=== PATIENT | female | born 1945 | race Hispanic/Latino ===

== ENCOUNTER 2022-04-24 18:09 | Inpatient (IN) | payer OTHER ==
[2022-04-24] MEDS ORDERED: FAMOTIDINE 20 MG/2 ML VIAL IV ONE (20:43)
[2022-04-24] MEDS ORDERED: ONDANSETRON 4 MG/2 ML VIAL ONE (20:43)
[2022-04-24 21:23] LABS: Absolute Lymphocytes (CBC) 1.7 K/uL (0.7-4.9); Hematocrit 39.2 % (36.0-45.0); MCV 85.8 fL (80-100); MPV 7.6 fL (7.6-11.3); RBC Red Blood Cell Count 4.56 M/uL (3.86-4.86)
[2022-04-24 21:23] LABS: Urine Blood Trace-lysed (Negative); Urine Glucose Negative (Negative); Urine Protein Negative (Negative); Urine pH 6.5 (5.0-7.0)
--- NOTE | 2022-04-24 22:08 | RAD REPORT ---
EXAM DESCRIPTION: Nelida Single View04/24/2022 9:59 pm CLINICAL HISTORY: Abdominal pain COMPARISON: 2016 FINDINGS: The lungs appear clear of acute infiltrate. The heart is normal size IMPRESSION: No acute abnormalities displayed
[2022-04-24] MEDS ORDERED: NA CHLORIDE 0.9% 100 ML ONE (22:14)
[2022-04-24] MEDS ORDERED: MORPHINE 2 MG/ML SYR ONE (22:14)
[2022-04-24] MEDS ORDERED: PIPERACIL/TAZO 3.375 GM VIAL IV ONE (22:15)
[2022-04-24 22:36] LABS: Albumin 3.8 g/dL (3.4-5.0); Bilirubin Total 0.4 mg/dL (0.2-1.0); Potassium 3.7 mmol/L (3.5-5.1)
--- NOTE | 2022-04-25 00:01 | ER ---
Nurse's Notes [facility] Name: Clotilde De La Cruz Age: 76 yrs Sex: Female : 1945 Arrival Date: 04/24/2022 Time: 18:13 Bed 14 Private MD: Diagnosis: Epigastric abdominal tenderness;Biliary acute pancreatitis Presentation: 04/24 19:51 Chief complaint: Patient states: Pt c/o lower back pain and right sided abdominal pain. ld1 Nausea. X 1 day. Coronavirus screen: At this time, the client does not indicate any symptoms associated with coronavirus-19. Ebola Screen: No symptoms or risks identified at this time. Initial Sepsis Screen: Does the patient meet any 2 criteria? No. Patient's initial sepsis screen is negative. Does the patient have a suspected source of infection? No. Patient's initial sepsis screen is negative. Risk Assessment: Do you want to hurt yourself or someone else? Patient reports no desire to harm self or others. Onset of symptoms was April 24, 2022. 19:51 Method Of Arrival: Ambulatory ld1 19:51 Acuity: JOSE 3 ld1 Triage Assessment: 19:54 General: Appears in no apparent distress. comfortable, Behavior is calm, cooperative, ld1 appropriate for age. Pain: Complains of pain in right upper quadrant and right lower quadrant Pain does not radiate. Pain currently is 4 out of 10 on a pain scale. Quality of pain is described as throbbing, Pain began 1 day ago. Is continuous. EENT: No signs and/or symptoms were reported regarding the EENT system. Neuro: Level of Consciousness is awake, alert, obeys commands, Oriented to person, place, time, situation. Cardiovascular: Capillary refill < 3 seconds Patient's skin is warm and dry. Respiratory: Airway is patent Respiratory effort is even, unlabored. GI: Abdomen is round non-distended. : No signs and/or symptoms were reported regarding the genitourinary system. Derm: No signs and/or symptoms reported regarding the dermatologic system. Musculoskeletal: No signs and/or symptoms reported regarding the musculoskeletal system. Historical: - Allergies: 19:54 No Known Allergies; ld1 - PMHx: 19:54 GERD; Diabetes mellitus; Hypertensive disorder; Hypercholesterolemia; ld1 - PSHx: 19:54 None; ld1 - Immunization history:: Adult Immunizations up to date, Client reports receiving the 2nd dose of the Covid vaccine. - Social history:: Smoking status: Patient denies any tobacco usage or history of. Patient/guardian denies using alcohol. Screenin:40 Abuse screen: Denies threats or abuse. Nutritional screening: No deficits noted. [facility] Tuberculosis screening: No symptoms or risk factors identified. Fall Risk None identified. Assessment: 23:40 Reassessment: No changes from previously documented assessment. [facility] 04/25 10:55 GI: Bowel sounds present X 4 quads. Abd is soft X 4 quads Abdomen is tender to jg9 palpation in right upper quadrant and right lower quadrant. Vital Signs: 04/24 19:51 BP 155 / 64; Pulse 80; Resp 18; Temp 97.8(TE); Pulse Ox 100% on R/A; Weight 68.04 kg; ld1 Height 5 ft. 4 in. (162.56 cm); Pain 4/10; 19:51 Body Mass Index 25.75 (68.04 kg, 162.56 cm) 1 ED Course: 18:13 Patient arrived in ED. rg4 18:24 Yobany Landry DO is Attending Physician. ms3 19:23 Attending Physician role handed off by Yobany Landry DO ms3 19:23 Daniel Hill MD is Attending Physician. ms3 19:54 Triage completed. ld1 19:54 Arm band placed on right wrist. ld1 20:25 Terrie Sexton is Primary Nurse. tw5 21:09 Inserted saline lock: 22 gauge in right antecubital area, using aseptic technique. ke1 22:01 Chest Single View XRAY In Process Unspecified. EDMS 22:31 US Abdomen Limited In Process Unspecified. EDMS 23:09 CT Abd/Pelvis - IV Contrast Only In Process Unspecified. EDMS 23:40 No apparent distress. Awaiting lab results, Awaiting radiology results. 1 23:40 Patient has correct armband on for positive identification. Bed in low position. Call [facility] light in reach. Side rails up X 1. 23:40 No provider procedures requiring assistance completed. 1 23:57 Cali Stanley MD is Hospitalizing Provider. [facility] 04/25 00:05 Maicol Gilliland MD is Hospitalizing Provider. la1 01:09 COVID-19 SARS RT PCR (Document "Date of Onset" if Symptomatic) Sent. ke1 10:33 Primary Nurse role handed off by Terrie Sexton jg9 10:33 Magda Alvarado, MARTHA is Primary Nurse. jg9 10:56 Patient admitted, IV remains in place. jg9 Administered Medications: 04/24 21:10 Drug: Pepcid (famotidine) 20 mg Route: IVP; Site: right antecubital; ke1 23:48 Follow up: Response: No adverse reaction [facility] 21:10 Drug: Zofran (Ondansetron) 4 mg Route: IVP; Site: right antecubital; ke1 21:30 Follow up: Response: Marked relief of symptoms tw5 23:48 Follow up: Response: No adverse reaction [facility] 22:15 Drug: Zosyn (piperacillin-tazobactam) 3.375 grams Route: IVPB; Infused Over: 60 mins; ke1 Site: right antecubital; 23:15 Follow up: Response: No adverse reaction tw5 23:48 Follow up: IV Intake: 100ml [facility] 23:48 Follow up: IV Status: Completed infusion [facility] 22:15 Drug: morphine 2 mg Route: IVP; Infused Over: 4 mins; Site: right antecubital; ke1 23:48 Follow up: Response: No adverse reaction [facility] 04/25 01:02 Drug: NS 0.9% 1000 ml Route: IV; Rate: 1 bolus; Site: right antecubital; ke1 02:00 Follow up: IV Status: Completed infusion 5 Medication: 04/24 23:40 VIS not applicable for this client. [facility] Intake: 23:48 IV: 100ml; Total: 100ml. [facility] Outcome: 04/25 00:00 Decision to Hospitalize by Provider. donna 10:55 Admitted to Med/surg accompanied by nurse, via wheelchair, room 205, with chart, Report jg9 called to MARTHA Hand 10:55 Condition: stable 10:57 Patient left the ED. jg9 Signatures: Dispatcher [employer] EDMS Daniel Hill MD MD cha Attema, Lee, WOOD DIE MAKER-C WOOD DIE MAKER-Cla1 Chacha Ribera rg4 Yobany Landry DO DO ms3 Huyen Urrutia, RN RN ld1 Terrie Sexton tw5 Magda Alvarado, RN RN jg9 Jun Martin, RN RN ke1 Isatu Huertas, RN RN bh1
--- NOTE | 2022-04-25 00:01 | EDPHYS ---
Physician Documentation [facility] [place], [place] Name: Clotilde De La Cruz Age: 76 yrs Sex: Female : 1945 Arrival Date: 04/24/2022 Time: 18:13 Bed 14 Private MD: ED Physician Daniel Hill HPI: 04/24 18:50 This 76 yrs old Female presents to ER via Unassigned with complaints of ms3 Abdominal Pain, Back Pain. 19:19 This 76 yrs old Female presents to ER via Unassigned with complaints of ms3 Abdominal Pain, Back Pain. 19:19 The patient presents with abdominal pain right lower quadrant. Onset: The ms3 symptoms/episode began/occurred acutely, yesterday. The symptoms do not radiate. Associated signs and symptoms: none. The symptoms are described as burning, crampy. Modifying factors: The symptoms are alleviated by nothing, the symptoms are aggravated by nothing. Severity of pain: At its worst the pain was moderate in the emergency department the pain is unchanged is a 4 / 10. Historical: - Allergies: 19:54 No Known Allergies; ld1 - PMHx: 19:54 GERD; Diabetes mellitus; Hypertensive disorder; Hypercholesterolemia; ld1 - PSHx: 19:54 None; ld1 - Immunization history:: Adult Immunizations up to date, Client reports receiving the 2nd dose of the Covid vaccine. - Social history:: Smoking status: Patient denies any tobacco usage or history of. Patient/guardian denies using alcohol. ROS: 19:19 Constitutional: Negative for fever, and chills. Neck: Negative for injury, pain, and ms3 swelling, Cardiovascular: Negative for chest pain, and palpitations. Respiratory: Negative for shortness of breath, cough, wheezing, and pleuritic chest pain. 19:19 Skin: Negative for injury, rash, and discoloration. 19:19 Abdomen/GI: Positive for nausea, vomiting. 19:19 All other systems are negative. Exam: 19:19 Constitutional: This is a well developed, well nourished patient who is awake, alert, ms3 and in no acute distress. Head/Face: Normocephalic, atraumatic. Neck: Trachea midline, no cervical lymphadenopathy. Supple, full range of motion without nuchal rigidity, or vertebral point tenderness. No Meningismus. Chest/axilla: Normal chest wall appearance and motion. Nontender with no deformity. Cardiovascular: Regular rate and rhythm with a normal S1 and S2. No gallops, murmurs, or rubs. Normal PMI, no JVD. No pulse deficits. Respiratory: Lungs have equal breath sounds bilaterally, clear to auscultation and percussion. No rales, rhonchi or wheezes noted. No increased work of breathing, no retractions or nasal flaring. Skin: Warm, dry with normal turgor. Normal color with no rashes, no lesions, and no evidence of cellulitis. MS/ Extremity: Pulses equal, no cyanosis. Neurovascular intact. Full, normal range of motion. Psych: Awake, alert, with orientation to person, place and time. Behavior, mood, and affect are within normal limits. 19:19 Abdomen/GI: Inspection: abdomen appears normal, Bowel sounds: normal, Palpation: moderate abdominal tenderness, in the right upper quadrant. 22:46 ECG was reviewed by the Attending Physician. [facility] Vital Signs: 19:51 BP 155 / 64; Pulse 80; Resp 18; Temp 97.8(TE); Pulse Ox 100% on R/A; Weight 68.04 kg; ld1 Height 5 ft. 4 in. (162.56 cm); Pain 4/10; 19:51 Body Mass Index 25.75 (68.04 kg, 162.56 cm) ld1 MDM: 19:19 Differential diagnosis: bowel obstruction, cholecystitis, Cholelithiasis, ms3 diverticulitis, gastritis, gastroesophageal reflux disease, non-specific abd pain, pancreatitis, Pyelonephritis, urinary tract infection. Transition of care: After a detail discussion of the patient's case, care is transferred to Daniel Hill MD. 20:35 Patient medically screened. [facility] 21:40 Data reviewed: vital signs, nurses notes, lab test result(s), EKG, radiologic studies, [facility] CT scan, plain films. 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 Test interpretation: by ED physician or midlevel provider: ECG, plain radiologic studies. Counseling: I had a detailed discussion with the patient and/or guardian regarding: the historical points, exam findings, and any diagnostic results supporting the discharge/admit diagnosis, lab results, radiology results. 04/24 18:50 Order name: CBC with Diff; Complete Time: 21:31 ms3 04/24 18:50 Order name: CMP; Complete Time: 22:45 ms3 04/24 18:50 Order name: Lipase; Complete Time: 22:45 ms3 04/24 18:50 Order name: Urine Microscopic Only ms3 04/24 21:24 Order name: Urine Dipstick-Ancillary; Complete Time: 21:31 EDMO 04/24 21:40 Order name: Troponin High Sensitivity [facility] 04/24 18:50 Order name: CT Abd/Pelvis - IV Contrast Only ms3 04/24 23:56 Order name: Lipid Profile [facility] 04/25 00:03 Order name: COVID-19 SARS RT PCR (Document "Date of Onset" if Symptomatic) tw5 04/25 04:49 Order name: CBC with Automated Diff EDMS 04/25 04:53 Order name: Comprehensive Metabolic Panel EDMO 04/25 04:53 Order name: Troponin High Sensitivity EDMO 04/25 04:53 Order name: Lipase EDMO 04/25 06:25 Order name: Glucose, Ancillary Testing EDMO 04/24 18:50 Order name: IV Saline Lock; Complete Time: 21:22 ms3 04/24 18:50 Order name: Labs collected and sent; Complete Time: 21:22 ms3 04/24 18:50 Order name: Urine Dipstick-Ancillary (obtain specimen); Complete Time: 21:22 ma3 04/24 21:40 Order name: US Abdomen Limited [facility] 04/24 21:40 Order name: EKG; Complete Time: 21:41 [facility] 04/24 21:40 Order name: EKG - Nurse/Tech; Complete Time: 22:33 [facility] 04/24 21:40 Order name: Chest Single View XRAY; Complete Time: 22:26 [facility] EC:46 Rate is 69 beats/min. Rhythm is regular. QRS [place] is Normal. [place] interval is normal. QRS donna interval is normal. QT interval is normal. No Q waves. T waves are Normal. No ST changes noted. Clinical impression: Normal ECG and No evidence of ischemia. Interpreted by me. Reviewed by me. Administered Medications: 21:10 Drug: Pepcid (famotidine) 20 mg Route: IVP; Site: right antecubital; ke1 23:48 Follow up: Response: No adverse reaction bh1 21:10 Drug: Zofran (Ondansetron) 4 mg Route: IVP; Site: right antecubital; ke1 21:30 Follow up: Response: Marked relief of symptoms tw5 23:48 Follow up: Response: No adverse reaction [facility] 22:15 Drug: Zosyn (piperacillin-tazobactam) 3.375 grams Route: IVPB; Infused Over: 60 mins; ke1 Site: right antecubital; 23:15 Follow up: Response: No adverse reaction tw5 23:48 Follow up: IV Intake: 100ml 1 23:48 Follow up: IV Status: Completed infusion [facility] 22:15 Drug: morphine 2 mg Route: IVP; Infused Over: 4 mins; Site: right antecubital; ke1 23:48 Follow up: Response: No adverse reaction [facility] 04/25 01:02 Drug: NS 0.9% 1000 ml Route: IV; Rate: 1 bolus; Site: right antecubital; ke1 02:00 Follow up: IV Status: Completed infusion tw5 Disposition Summary: 04/25/22 00:00 Hospitalization Ordered Hospitalization Status: Inpatient Admission donna Condition: Fair donna Problem: new donna Symptoms: have improved donna Bed/Room Type: Standard donna Provider: Maicol Gilliland(04/25/22 00:05) yvan Location: Telemetry/MedSurg (Inpatient)(04/25/22 09:37) [facility] Room Assignment: [facility](04/25/22 09:37) [facility] Diagnosis - Epigastric abdominal tenderness donna - Biliary acute pancreatitis donna Forms: - Medication Reconciliation Form donna - SBAR form donna Signatures: Dispatcher [employer] EDMS Daniel Hill MD MD cha Attema, Lee, WAREHOUSE ORDER FILLER-C WAREHOUSE ORDER FILLER-Cla1 Petty Ribera, RN RN cg Luke Cunningham RN RN ja1 Yobany Landry DO DO ms3 Huyen Urrutia RN RN [email or web address] Jun Martin RN RN lala1 Terrie Sexton tw5 Isatu Huertas RN 1 Corrections: (The following items were deleted from the chart) 00:02 00:00 Telemetry/MedSurg (Inpatient) donna cg 00:02 00:00 donna cg 00:02 00:02 cg cg 00:05 00:00 OmitogunNorrisde donna la1 09:37 00:02 BR ER HOLD cg ja1 09:37 00:02 ERHOLD- cg ja1
[2022-04-25] MEDS ORDERED: ASPIRIN 81 MG CHEWABLE TABLET ONE (00:33)
[2022-04-25] MEDS ORDERED: NA CHLORIDE 0.9% 1,000 ML ONE ×2 (01:04→05:49)
--- NOTE | 2022-04-25 01:15 | P.HP ---
Certification for Inpatient Patient admitted to: Observation With expected LOS: <2 Midnights Patient will require the following post-hospital care: None Practitioner: I am a practitioner with admitting privileges, knowledge of patient current condition, hospital course, and medical plan of care. Services: Services provided to patient in accordance with Admission requirements found in Title 42 Section 412.3 of the Code of Federal Regulations <Rafael Olsen Keri Sales - Last Filed: 04/25/22 01:10> Patient History Date of Service: 04/25/22 History of Present Illness: 76-year-old Turkmen-speaking female with history of dur-lmalmmk-hfhgqvlwr diabetes, GERD, hypertension and hyperlipidemia presents to the emergency department for abdominal pain. She reports that her pain began yesterday, she describes the pain as dull, radiating to the back worse after eating and intermittent. Her pain is located primarily in the right side of the abdomen upper and lower quadrants. She was evaluated in the emergency department her labs were significant for mild leukocytosis, mild hyponatremia she had an ultrasound of her gallbladder which was unremarkable as well as a CT scan of the abdomen and pelvis the CT scan revealed abnormal increase peripancreatic haziness with increased size of the pancreatic head. Suggesting the possibility of minimal acute pancreatitiscorrelate with labs. Patient's lipase was within normal limits she is not a daily drinker, she does not have significant hypertriglyceridemia no history of pancreatitis in the past. She does take omeprazole daily for GERD/gastritis she has been doing this for many years she says she also reports that about 5 years ago she had an EGD which she reports was normal at that time. ED provider wishes to admit for further evaluation and management of abdominal pain and tenderness, possible pancreatitis/GERD/duodenitis - Past Medical/Surgical History -: Diabetes mellitus type 2 -: Hypertension -: Hyperlipidemia -: GERD -: None Psychosocial/ Personal History: Patient is retired, lives at home with her - Family History Family History: Reviewed- Non-Contributory - Social History Smoking Status: Never smoker Alcohol use: No CD- Drugs: No Caffeine use: Yes Place of Residence: Home <Rafael Olsen - Last Filed: 04/25/22 01:10> Date of Service: 04/25/22 <Maicol Gilliland - Last Filed: 04/25/22 10:17> Allergies No Known Allergies Allergy (Unverified 02/05/12 20:30) Home Medications: Cetirizine HCl 1 tab PO DAILY 04/25/22 Fluticasone Propionate [Armonair Digihaler] 2 spray SANTOS DAILY 04/25/22 Lovastatin 1 tab PO DAILY 04/25/22 Metformin ER [Glucophage ER*] 1 tab PO BID 04/25/22 Omeprazole 20 mg PO DAILY 04/25/22 Valsartan/Hydrochlorothiazide [Valsartan-Hctz 160-12.5 mg Tab] 1 tab PO DAILY 04/25/22 Review of Systems 10-point ROS is otherwise unremarkable Gastrointestinal: Nausea, Abdominal Pain <Rafael Olsen - Last Filed: 04/25/22 01:10> Physical Examination - Physical Exam General: Alert, In no apparent distress, Oriented x3 HEENT: Atraumatic, PERRLA, Mucous membr. moist/pink, EOMI, Sclerae nonicteric Neck: Supple, 2+ carotid pulse no bruit, No LAD, Without JVD or thyroid abnormality Respiratory: Clear to auscultation bilaterally, Normal air movement Cardiovascular: Regular rate/rhythm, Normal S1 S2 Capillary refill: <2 Seconds Gastrointestinal: Normal bowel sounds, Tenderness (Mild abdominal tenderness r ight upper and lower quadrants) Musculoskeletal: No tenderness Integumentary: No rashes Neurological: Normal speech, Normal strength at 5/5 x4 extr, Normal tone, Normal affect Lymphatics: No axilla or inguinal lymphadenopathy - Studies Laboratory Data (last 24 hrs) 04/24/22 21:14: Triglycerides 67, Cholesterol 165, HDL Cholesterol 65 H, Cholesterol/HDL Ratio 2.54 04/24/22 21:14: Sodium 132 L, Potassium 3.7, BUN 9, Creatinine 0.88, Glucose 112 H, Total Bilirubin 0.4, AST 13 L, ALT 26, Alkaline Phosphatase 70, Lipase 154 04/24/22 21:12: WBC 13.4 H, Hgb 13.3, Hct 39.2, Plt Count 235 <Rafael Olsen - Last Filed: 04/25/22 01:10> - Studies Laboratory Data (last 24 hrs) 04/24/22 21:14: Triglycerides 67, Cholesterol 165, HDL Cholesterol 65 H, Cholesterol/HDL Ratio 2.54 04/24/22 21:14: Sodium 132 L, Potassium 3.7, BUN 9, Creatinine 0.88, Glucose 112 H, Total Bilirubin 0.4, AST 13 L, ALT 26, Alkaline Phosphatase 70, Lipase 154 04/24/22 21:12: WBC 13.4 H, Hgb 13.3, Hct 39.2, Plt Count 235 <Maicol Gilliland - Last Filed: 04/25/22 10:17> Assessment and Plan - Plan Assessment: Abdominal tenderness/pain GERD Diabetes mellitus type [id number] Hypertension Hyperlipidemia Plan: Abdominal tenderness/pain: Initial lipase negative CT suggest possible early pancreatitis, will trend lipase level keep patient n.p.o. at this time provide as needed pain medications gallbladder negative for cholelithiasis or cholecystitis on both CT and ultrasound. GERD/duodenitis also possible to be contributing. Will provide patient with PPI as well. GERD: IV PPI, pt takes omeprazole at home. Diabetes mellitus type [id number]-[id number]-spbhlmape: Every 6 hours Accu-Chek, mild sliding scale insulin. patient takes metformin 500mg PO BID at home. Hypertension: Continue home medications when appropriate patient takes valsartan/hydrochlorothiazide 160/12.5 Hyperlipidemia: Continue lovastatin 20 mg daily when appropriate DVT PPX: Lovenox Code status: Full Discharge Plan: Home Plan to discharge in: 24 Hours - Advance Directives Does patient have a Living Will: No Does patient have a Durable POA for Healthcare: No - Code Status/Comfort Care Code Status Assessed: Yes (Full code) Critical Care: No Time Spent Managing Pts Care (In Minutes): 70 <Rafael Olsen - Last Filed: 04/25/22 01:10> Physician Review: Patient Assessed, Agree with Above Assessment and Plan Physician Review Additional Text: I have personally seen and evaluated Ms. Clotilde De La Cruz. I reviewed the notes and assessments performed by Rafael Olsen NP. I independently performed my own history and physical examination. I agree with the assessment and plan as outlined in his note. I concur with his documentation of Ms. De La Cruz. DIAGNOSES: # Acute Pancreatitis # Hypovolemic Hyponatremia, resolved # Type II Diabetes Mellitus # Hypertension # Hyperlipidemia # Gastroesophageal Reflux Disease Maicol Gilliland M.D. <Maicol Gilliland - Last Filed: 04/25/22 10:17>
[2022-04-25] MEDS ORDERED: SODIUM CHLORIDE 0.9% 10ML INJ IV PRN (03:36)
[2022-04-25] MEDS ORDERED: ONDANSETRON 4 MG/2 ML VIAL IV PRN (03:36)
[2022-04-25] MEDS ORDERED: NA CHLORIDE 0.9% 1,000 ML IV SCH (03:36)
[2022-04-25 04:42] LABS: Absolute Lymphocytes (CBC) 1.5 K/uL (0.7-4.9); Hematocrit 34.8 % (36.0-45.0); Lymphocytes % 13.4 % (15.3-44.8); MPV 7.8 fL (7.6-11.3)
[2022-04-25 04:53] LABS: Albumin 2.9 g/dL (3.4-5.0); Bilirubin Total 0.5 mg/dL (0.2-1.0); Potassium 3.8 mmol/L (3.5-5.1); Protein, Total 6.8 g/dL (6.4-8.2); Troponin High Sensitivity 5.6 pg/mL (<58.9)
[2022-04-25 04:59] VITALS: BMI 25.7
[2022-04-25] MEDS: Ringers Lactate 1,000 ML IV SCH ×4 (07:00→21:52)
[2022-04-25] MEDS: INSULIN -REGULAR HUMAN 50 UNIT/0.5 ML ML SQ SCH ×4 (07:30→21:00)
[2022-04-25] MEDS ORDERED: PANTOPRAZOLE 40 MG INJ ONE (08:16)
[2022-04-25] MEDS ORDERED: Ringers Lactate 1,000 ML IV ONE (08:17)
[2022-04-25] MEDS ORDERED: ENOXAPARIN 40 MG/0.4 ML SQ ONE (08:17)
[2022-04-25] MEDS: PANTOPRAZOLE 40 MG INJ IVP SCH ×2 (08:27→21:52)
[2022-04-25] MEDS: ENOXAPARIN 40 MG/0.4 ML SQ SCH (08:27)
[2022-04-25] MEDS: MORPHINE 2 MG/ML SYR IV PRN ×2 (09:29→20:37)
[2022-04-25] MEDS ORDERED: MORPHINE 2 MG/ML SYR ONE (09:33)
--- NOTE | 2022-04-25 10:51 | RAD REPORT ---
EXAM DESCRIPTION: Abdomen Exam Limited 04/24/2022 11:16 PM CDT CLINICAL HISTORY: 76 years, Female, ABD PAIN COMPARISON: None. TECHNIQUE: Utilizing a curved array transducer, real-time ultrasound evaluation of the abdominal vis cera was performed. Color Doppler imaging was used to assess vascular flow. FINDINGS: The liver demonstrate to be within normal limits. The gallbladder demonstrate to be within normal limits. No gallbladder stones were seen. No peric holecystic fluid and or wall thickening was identified. The common bile duct measures 2.4 mm. No intra or extrahepatic biliary duct dilatation was identified. The pancreas was not visualized. There is no evidence for free fluid within the upper abdomen. IMPRESSION: No sonographic evidence of cholelithiasis or cholecystitis. Electronically signed by: Josafat Hackett MD 04/24/2022 11:17 PM CDT Due to temporary technical issues with the PACS/Fluency reporting system, reports are being signed by the in house radiologists without review as a courtesy to insure prompt reporting. The interpreting radiologist is fully responsible for the content of the report.
[2022-04-25 11:12] VITALS: O2SAT 100
--- NOTE | 2022-04-25 15:41 | RAD REPORT ---
EXAM DESCRIPTION: Abdomen Pelvis W Contrast 04/24/2022 11:18 PM CDT CLINICAL HISTORY: 76 years, Female, RLQ abdominal pain COMPARISON: 07/28/2015 CLINICAL HISTORY: Contrast-enhanced images of the abdomen and pelvis were performed utilizing 5 mm s lice thickness at 5 mm interval reconstruction from the lung bases to the ischial tuberosities after the administration of IV contrast. In addition multiplanar reformats in the coronal and sagittal plane were obtained and reviewed. This exam was performed according to our departmental dose-optimization protocol, which includes auto mated exposure control, adjustment of the mA and/or kV according to patient size and/or use of iterat nahum reconstruction technique. FINDINGS: Some of the images are compromised by breathing motion artifact limiting diagnostic value. The lung bases demonstrate very minimal dependent atelectatic changes. Mild elevation of the right he midiaphragm. The liver demonstrate decreased attenuation corresponding to fatty infiltration. Otherwise the liver, gallbladder, spleen and adrenal glands demonstrate to be unremarkable, no focal lesions are noted. T here is no significant biliary duct dilatation. At the level of the pancreatic head there is abnormal increase peripancreatic haziness with increased size of the pancreatic head perhaps suggesting the p ossibility of minimal acute pancreatitis, best demonstrated on series #501 image 31/101-41/[address] series #402 image 44/115-50/115. The kidneys demonstrate normal uptake of contrast media. No evidence for nephrolithiasis and/or hydro nephrosis. There is a lower pole simple left renal cyst measuring 3.1 x [address] series #401 image 48/59. Grossly the unopacified stomach, small bowel and large bowel demonstrate to be within normal limits. There is no evidence for bowel dilatation and/or free air. The appendix is normal. The left site colon is decompressed with no gross abnormalities The urinary bladder demonstrate to be unremarkable. The uterus demonstrate to be within normal limi ts. There is no evidence for adnexal masses. The aorta demonstrate minimal atheromatous plaque form ation. There is no retroperitoneal lymphadenopathy. There is no evidence for ascites/or significant abnormal fluid collections. The rest of the soft tissue and bony structures are within normal limits . IMPRESSION: Abnormal increase peripancreatic haziness with increased size of the pancreatic head per haps suggesting the possibility of minimal acute pancreatitis. Correlate with lab values. Fatty infiltration of the liver. Left renal cyst. Electronically signed by: Josafat Hackett MD 04/24/2022 11:22 PM CDT Due to temporary technical issues with the PACS/Fluency reporting system, reports are being signed by the in house radiologists without review as a courtesy to insure prompt reporting. The interpreting radiologist is fully responsible for the content of the report.
[2022-04-25] MEDS ORDERED: ACETAMINOPHEN 325 MG TABLET PO PRN (15:52)
[2022-04-26] MEDS: Ringers Lactate 1,000 ML IV SCH ×4 (03:00→16:07)
[2022-04-26 04:18] LABS: Absolute Lymphocytes (CBC) 1.3 K/uL (0.7-4.9); Hematocrit 32.1 % (36.0-45.0); Lymphocytes % 21.4 % (15.3-44.8); MCV 87.1 fL (80-100); MPV 7.6 fL (7.6-11.3); RBC Red Blood Cell Count 3.68 M/uL (3.86-4.86)
[2022-04-26 04:37] LABS: Albumin 2.5 g/dL (3.4-5.0); Bilirubin Total 0.5 mg/dL (0.2-1.0); Potassium 3.6 mmol/L (3.5-5.1); Protein, Total 6.2 g/dL (6.4-8.2)
[2022-04-26] MEDS: INSULIN -REGULAR HUMAN 50 UNIT/0.5 ML ML SQ SCH ×4 (07:30→20:18)
[2022-04-26] MEDS ORDERED: KCL 20 MEQ/100 mL IVPB 20 MEQ/100 ML BAG IV SCH (08:00)
[2022-04-26] MEDS ORDERED: NA CHLORIDE 0.9% 0 ML ONE (08:21)
[2022-04-26] MEDS: ENOXAPARIN 40 MG/0.4 ML SQ SCH (08:23)
[2022-04-26] MEDS: PANTOPRAZOLE 40 MG INJ IVP SCH ×2 (08:24→20:17)
--- NOTE | 2022-04-26 14:32 | P.PN ---
Subjective Date of Service: 04/26/22 Chief Complaint: Acute Pancreatitis Ms. Clotilde De La Cruz is Faroese-speaking only. History was obtained with the assistance of a Faroese-Divehi field broomer. She reports that her pain is significantly better and has completely subsided. She feels hungry and is willing to try a diet. Discussed that we will advance her diet as tolerated, and she is in agreement this plan. Anticipate that she can be discharged tomorrow morning presuming that she tolerates a diet without any issues. Review of Systems General: Unremarkable Eyes: Unremarkable ENT: Unremarkable Respiratory: Unremarkable Cardiovascular: Unremarkable Gastrointestinal: Abdominal Pain (minimal) Genitourinary: Unremarkable Musculoskeletal: Unremarkable Integumentary: Unremarkable Neurological: Unremarkable Physical Examination - Vital Signs Temperature: 97.4 F Blood Pressure: 176/71 Pulse: 71 Respirations: 16 Pulse Ox (%): 93 - Physical Exam General: Alert, In no apparent distress, Oriented x3 HEENT: Atraumatic, Mucous membr. moist/pink, EOMI Neck: Supple, Without JVD or thyroid abnormality Respiratory: Clear to auscultation bilaterally, Normal air movement Cardiovascular: No edema, Regular rate/rhythm, Normal S1 S2, No gallops, No rubs, No murmurs Gastrointestinal: Normal bowel sounds, Soft and benign, No tenderness, No rebound, No guarding Musculoskeletal: No clubbing Integumentary: No rashes Neurological: Normal speech, Normal affect - Studies Medications List Reviewed: Yes Assessment And Plan - Plan # Acute Pancreatitis, suspect Medication-Induced Her calculated BISAP score is 1 (age > 60 years), which is suggestive of an increased mortality risk. In regards to the etiology of her pancreatitis, she does not have any evidence of cholelithiasis or hypertriglyceridemia. She denies any regular alcohol use. On medication review, valsartan has been shown to cause pancreatitis on occasion. - Started clear liquid diet - advance as tolerated - Lactated Ringers @ 100 mL/hour - Symptom management: - PRN acetaminophen, morphine, ondansetron - Lipase = 1083 - Lipid panel = TC 165, HDL 65, LDL 87, TG 67 - CT abdomen/pelvis: "abnormal increase peripancreatic haziness with increased size of the pancreatic head perhaps suggesting the possibility of minimal acute pancreatitis. Correlate with lab values." - Abdomen US: "no sonographic evidence of cholelithiasis or cholecystitis." - Hold valsartan # Type II Diabetes Mellitus # Hypertension # Hyperlipidemia # Gastroesophageal Reflux Disease - Home meds held given acute pancreatitis - resume as tolerated - Correction scale insulin ordered # Hepatic Steatosis # Left Renal Cyst - Follow-up with PCP # Hypovolemic Hyponatremia, resolved Maicol Gilliland MD Discharge Plan: Home Plan to discharge in: 24 Hours - Code Status/Comfort Care Code Status Assessed: Yes Code Status: Full Code Physician Review: Patient Assessed, Agree with Above Assessment and Plan Critical Care: No
[2022-04-27] MEDS: Ringers Lactate 1,000 ML IV SCH (01:00)
[2022-04-27 04:05] LABS: Potassium 3.7 mmol/L (3.5-5.1)
[2022-04-27] MEDS ORDERED: POTASSIUM CL SA 10 MEQ TAB PO ONE (06:09)
--- NOTE | 2022-04-27 06:32 | P.DS ---
Admission Date: 04/25/22 Discharge Date: 04/27/22 Disposition: ROUTINE DISCHARGE Discharge Condition: GOOD Reason for Admission: Acute Pancreatitis Hospital Course: DIAGNOSES: # Acute Pancreatitis, suspect Medication-Induced # Hypovolemic Hyponatremia, resolved # Type II Diabetes Mellitus # Hypertension # Hyperlipidemia # Gastroesophageal Reflux Disease # Hepatic Steatosis # Left Renal Cyst HOSPITAL COURSE: Ms. Clotilde De La Cruz is Dutch-speaking only. Discharge instructions were explained with the assistance of [employer] certified Dutch-[place] fashion designer, Ms. Loza, (ID [id number]). Ms. Clotilde De La Cruz is a pleasant 76 year old female with a past medical history significant for type 2 diabetes mellitus, hypertension, hyperlipidemia, and gastroesophageal reflux disease who was admitted to the [facility] on 04/25/2022 for abdominal pain. Upon further evaluation, she was found to have acute pancreatitis. She was treated with intravenous lactated Ringer's and her diet was advanced gradually as tolerated. Today, she felt significantly better and was able to tolerate a regular diet without any abdominal pain, nausea, or vomiting. In regards to the etiology of her pancreatitis, she does not have any evidence of cholelithiasis or hypertriglyceridemia. She denies any regular alcohol use. On medication review, valsartan has been shown to cause pancreatitis on occasion. It was recommended that she discontinue her valsartanhydrochlorothiazide, and she was provided a prescription for hydrochlorothiazide. She was advised to follow-up with her PCP for alternative anti-hypertensive regimens. On 04/27/2022, she was seen on morning rounds and deemed medically stable for discharge. She was discharged with instructions to schedule a follow-up appointment with her PCP in 3-5 days. She was provided a prescription for hydrochlorothiazide. She was given the opportunity to ask questions and reported no further questions. Furthermore, all questions were answered to the best of my ability. Today, I personally spent 20 minutes with her, of which greater than 50% of the time was spent in patient education, counseling, and coordination of care as described above. Vital Signs/Physical Exam: Temp Pulse Resp BP Pulse Ox 97.5 F 70 16 140/65 96 04/27/22 04:00 04/27/22 04:00 04/27/22 04:00 04/27/22 04:00 04/27/22 04:00 General: Alert, In no apparent distress, Oriented x3 HEENT: Atraumatic, Mucous membr. moist/pink, EOMI, Sclerae nonicteric Neck: Supple, JVD not distended Respiratory: Clear to auscultation bilaterally, Normal air movement Cardiovascular: Regular rate/rhythm, Normal S1 S2, No gallops, No rubs, No murmurs Gastrointestinal: Normal bowel sounds, Soft and benign, No tenderness, No rebound, No guarding Musculoskeletal: No clubbing, No tenderness Integumentary: No rashes Neurological: Normal speech, Normal tone, Normal affect Laboratory Data at Discharge: WBC 6.3 K/uL (4.3-10.9) D 04/26/22 03:59 Hgb 10.9 g/dL (12.0-15.0) L 04/26/22 03:59 Hct 32.1 % (36.0-45.0) L 04/26/22 03:59 Plt Count 197 K/uL (152-406) 04/26/22 03:59 Sodium 140 mmol/L (136-145) 04/27/22 03:10 Potassium 3.7 mmol/L (3.5-5.1) 04/27/22 03:10 BUN 6 mg/dL (7-18) L 04/27/22 03:10 Creatinine 0.68 mg/dL (0.55-1.3) 04/27/22 03:10 Glucose 100 mg/dL (74-106) 04/27/22 03:10 Total Bilirubin 0.5 mg/dL (0.2-1.0) 04/26/22 03:59 AST 9 U/L (15-37) L 04/26/22 03:59 ALT 16 U/L (12-78) 04/26/22 03:59 Alkaline Phosphatase 52 U/L (45-117) 04/26/22 03:59 Triglycerides 67 mg/dL (<150) 04/24/22 21:14 Cholesterol 165 mg/dL (<200) 04/24/22 21:14 HDL Cholesterol 65 mg/dL (40-60) H 04/24/22 21:14 Cholesterol/HDL Ratio 2.54 04/24/22 21:14 Lipase 115 U/L (73-393) 04/27/22 03:10 Home Medications: Cetirizine HCl 1 tab PO DAILY 04/25/22 Fluticasone Propionate [Armonair Digihaler] 2 spray SANTOS DAILY 04/25/22 Lovastatin 1 tab PO DAILY 04/25/22 Metformin ER [Glucophage ER*] 1 tab PO BID 04/25/22 Omeprazole 20 mg PO DAILY 04/25/22 hydroCHLOROthiazide [Hydrochlorothiazide*] 12.5 mg PO DAILY #30 cap 04/27/22 New Medications: hydroCHLOROthiazide [Hydrochlorothiazide*] 12.5 mg PO DAILY #30 cap Physician Discharge Instructions: PROBLEM: Pancreatitis GOAL: Clear understanding of disease process INSTRUCTIONS: Ok to discharge home Follow up with Primary Care Provider in 3-5 days Take new medication as prescribed Contact physician or return to ER for any complications or concerns Call [phone] for any questions regarding hospital stay Diet: Diabetic Activity: As tolerated E-script sent to [facility] in [place] Diet: ADA Activity: Ad cricket Followup: NONE,NONE [Primary Care Provider] - Time spent managing pt's care (in minutes): 20
[2022-04-27] MEDS: INSULIN -REGULAR HUMAN 50 UNIT/0.5 ML ML SQ SCH (07:24)
[2022-04-27 08:50] VITALS: BP 144/67; TEMP 97.7
--- NOTE | 2022-04-28 13:58 | EKG ---
Test Date: 2022-04-24 Test Time: 22:23:52 Air Conditioning Mechanic: ANDIE MEASUREMENT RESULTS: Intervals: Rate: 69 OH: 168 QRSD: 80 QT: 372 QTc: 398 [place]: P: 61 OH: 168 QRS: 84 T: 52 INTERPRETIVE STATEMENTS: Normal sinus rhythm Normal ECG Compared to ECG 09/12/2012 08:57:46 No significant changes Electronically Signed On 04-28-22 13:50:55 CDT by Mohan Jones
--- OUTSIDE RECORDS SUMMARY | 2022-05-07 17:22 | XMS REPORT | Continuity of Care Document ---
:1945 Author Organization [facility] t Address [address] [place] [address] Care Team Providers Name Role Phone TANK GARCÍA Primary Care Physician Unavailable Simone JOHNSTON Attending Clinician Unavailable Simone Johnston MD Attending Clinician Payers Payer Name Policy Type Policy Number Effective Date Expiration Date Sydnie kruse Ofuz [id number] 2021 00:00:00 SPRING Problems This patient has no known problems. Allergies, Adverse Reactions, Alerts Allergy Allergy Status Severity Reaction(s) Onset Inactive Treating Comm ents Source Name Type Date Date Clinician NO KNOWN Drug Active Univers ALLERGIE Class ity of [facility] Social History Social Habit Start Date Stop Date Quantity Comments Source Exposure to 2022-03-26 2022-04-05 Not sure [facility] SARS-CoV-2 (event) 00:00:00 08:54:00 Medica l Branch Sex Assigned At [birth year] [facility] 00:00:00 00:00:00 Medical Branch Smoking Status Start Date Stop Date Source Unknown if ever smoked [facility] Medications Ordered Filled Start Stop Current Ordering Indication Dosage Frequency Signature Comments Components Source Medication Medication Date Date Medication? Clinician (SIG) Name Name VALSARTAN-H Yes Take by Un susanna YDROCHLOROT 6-18 mouth. ity of HIAZIDE 09:34: [place] ORAL 46 Medical Branch LOVASTATIN Yes Take by Uni vers ORAL 6-18 mouth. ity of 09:34: [place] 46 [facility] Branch metformin Yes Take by Univ ers HCl 6-18 mouth. ity of (METFORMIN 09:34: [place] ORAL) 46 Medical Branch fluticasone Yes [id number] 2{spray Use 2 Univers propionate -18 } Sprays in ity of 50 00:00: each [place] mcg/actuati 00 nostril Medic al on nasal daily. Branch spray Cetirizine 2021- Yes [id number] 10mg Take 1 Univers 10 mg 04-05 capsule by ity of capsule 00:00: 04:59 mouth [place] 00 :00 daily for Medical 30 days. Branch Immunizations Ordered Filled Immunization Date Status Comments Sour e Immunization Name Name SARS-COV-2 COVID-19 2021-08-21 Completed Unive rsity of PFIZER VACCINE 00:00:00 [facility] SARS-COV-2 COVID-19 2021-03-04 Completed Unive rsity of PFIZER VACCINE 00:00:00 [facility] SARS-COV-2 COVID-19 2021-02-12 Completed Unive rsity of PFIZER VACCINE 00:00:00 [facility] Vital Signs Vital Name Observation Time Observation Value Comments Source Systolic blood 2022-04-05 13:55:00 159 mm[Hg] Univer sity of pressure [facility] Diastolic blood 2022-04-05 13:55:00 63 mm[Hg] Unive rsity of pressure [facility] Heart rate 2022-04-05 13:55:00 81 /min [facility] Body temperature 2022-04-05 13:55:00 36.67 Key Univ ersity of [facility] Respiratory rate 2022-04-05 13:55:00 22 /min Univ ersity of [facility] Body weight 2022-04-05 13:55:00 72.53 kg [facility] Oxygen saturation in 2022-04-05 13:55:00 97 /min [facility] Arterial blood by [facility] Pulse oximetry Branch Procedures Procedure Date / Time Performed Performing Clinician Sour e NOTICE OF PRIVACY 2022-04-05 13:51:39 Doctor Unassigned, No Univ [facility] [place] PRACTICES Name Medical Branch Encounters Start End Encounter Admission Attending Care Care Encounter Source Date/Time Date/Time Type Type Clinicians Facility Department ID 2022-04-05 2022-04-05 Emergency X PRESTON, [facility] ERT [id number] Univers 08:58:00 10:00:00 JESÚS servin [facility] 2022-04-05 2022-04-05 Emergency Preston, [facility] [id number] [facility] 08:58:00 10:00:00 Jesús RISO [id number] gareth campbell [place] [id number] [facility] [id number] [place] [address] Branch Results This patient has no known results.
== END 2022-04-27 08:30 | disposition home or self-care (01) | DRG 439 ==
LOC: ER 18:09 → ERHOLD 04-25 01:03 → 2ND 04-25 10:08 → OBSVTOIN 04-25 12:07
PROVIDERS: ADMIT Internal Medicine; ATTEND Internal Medicine
DX: K85.30 Drug induced acute pancreatitis without necrosis or infection (principal); E87.1 Hypo-osmolality and hyponatremia; T46.5X5A Adverse effect of other antihypertensive drugs, initial encounter; Y92.009 Unspecified place in unspecified non-institutional (private) residence as the place of occurrence of the external cause; E86.1 Hypovolemia; E11.9 Type 2 diabetes mellitus without complications; I10 Essential (primary) hypertension; E78.5 Hyperlipidemia, unspecified; K21.9 Gastro-esophageal reflux disease without esophagitis; K76.0 Fatty (change of) liver, not elsewhere classified; N28.1 Cyst of kidney, acquired; Z20.822 Contact with and (suspected) exposure to COVID-19
CPT/HCPCS: 36415; 71045; 74177; 76705; 80048; 80053; 80061; 81003; 82947; 83690; 84484; 85025; 93005; 96361; 96365; 96366; 96375; 99285; C9113; G0378; J1650; J2270; J2405; J2543; J3480; J3490; J7030; J7050; J7120; Q9967; U0003

== ENCOUNTER 2022-08-14 19:25 | Emergency (ER) | payer OTHER ==
[2022-08-14] MEDS ORDERED: FLEET ENEMA ADULT PR ONE (19:59)
[2022-08-14] MEDS ORDERED: NA CHLORIDE 0.9% 1,000 ML ONE (20:00)
--- OUTSIDE RECORDS SUMMARY | 2022-08-14 20:00 | XMS REPORT | Continuity of Care Document ---
:1945 Author Organization [facility] t Address [address] [place] [address] [address] [place] [address] Care Team Providers Name Role Phone JEANCARLOS GARCÍA Primary Care Physician Unavailable JESÚS JOHNSTON Attending Clinician Unavailable Jesús Johnston MD Attending Clinician Payers Payer Name Policy Type Policy Number Effective Date Expiration Date Sydnie kruse Pik[employer]chart [id number] 2021 00:00:00 SPRING Problems This patient has no known problems. Allergies, Adverse Reactions, Alerts Allergy Allergy Status Severity Reaction(s) Onset Inactive Treating Comm ents Source Name Type Date Date Clinician NO KNOWN Drug Active Univers ALLERGIE Class ity of [facility] Social History Social Habit Start Date Stop Date Quantity Comments Source Exposure to 2022-03-26 2022-04-05 Not sure [facility] SARS-CoV-2 (event) 00:00:00 08:54:00 Medica l Branch Sex Assigned At [birth year] [facility] 00:00:00 00:00:00 Medical Branch Smoking Status Start Date Stop Date Source Unknown if ever smoked [facility] Medications Ordered Filled Start Stop Current Ordering Indication Dosage Frequency Signature Comments Components Source Medication Medication Date Date Medication? Clinician (SIG) Name Name VALSARTAN-H Yes Take by Uni vers YDROCHLOROT 6-18 mouth. ity of HIAZIDE 09:34: [place] ORAL [address] [place] [address] LOVASTATIN Yes Take by Univ ers ORAL 6-18 mouth. ity of 09:34: [address] metformin Yes Take by Unive rs HCl 6-18 mouth. ity of (METFORMIN 09:34: [place] ORAL) 46 [facility] fluticasone Yes [id number] 2{spray Use 2 Univers propionate 6-18 } Sprays in ity of 50 00:00: each [place] mcg/actuati 00 nostril Medic al on nasal daily. Branch spray Cetirizine 2021- No [id number] 10mg Take 1 Univers 10 mg 04-05 capsule by ity of capsule 00:00: 04:59 mouth [place] 00 :00 daily for Medical 30 days. Branch Immunizations Ordered Filled Immunization Date Status Comments Sour e Immunization Name Name SARS-COV-2 COVID-19 2021-08-21 Completed Unive rsity of PFIZER VACCINE 00:00:00 [facility] SARS-COV-2 COVID-19 2021-03-04 Completed Unive rsity of PFIZER VACCINE 00:00:00 [facility] SARS-COV-2 COVID-19 2021-02-12 Completed Unive rsity of PFIZER VACCINE 00:00:00 [facility] Vital Signs Vital Name Observation Time Observation Value Comments Source Systolic blood 2022-04-05 13:55:00 159 mm[Hg] Univer sity of pressure [facility] Diastolic blood 2022-04-05 13:55:00 63 mm[Hg] Unive rsity of pressure [facility] Heart rate 2022-04-05 13:55:00 81 /min [facility] Body temperature 2022-04-05 13:55:00 36.67 Key [facility] Res[facility] rate 2022-04-05 13:55:00 22 /min [facility] Body weight 2022-04-05 13:55:00 72.53 kg [facility] Oxygen saturation in 2022-04-05 13:55:00 97 /min [facility] Arterial blood by [facility] Pulse oximetry [place] Procedures Procedure Date / Time Performed Performing Clinician Sour e NOTICE OF PRIVACY 2022-04-05 13:51:39 Doctor Unassigned, No Univ [facility] PRACTICES Name Medical Branch Encounters Start End Encounter Admission Attending Care Care Encounter Source Date/Time Date/Time Type Type Clinicians Facility Department ID 2022-04-05 2022-04-05 Emergency X PRESTON, [facility] ERT [id number] Univers 08:58:00 10:00:00 JESÚS servin [facility] 2022-04-05 2022-04-05 [facility] [id number] [facility] 08:58:00 10:00:00 Jesús RIOS [id number] gareth [facility] [id number] [facility] [id number] [facility] 084 Branch Results This patient has no known results.
[2022-08-14 20:29] LABS: Urine Blood Negative (Negative); Urine Glucose Negative (Negative); Urine Protein Negative (Negative); Urine Specific Gravity 1.025 (1.005-1.030)
[2022-08-14 20:48] LABS: Absolute Lymphocytes (CBC) 2.5 K/uL (0.7-4.9); Hematocrit 38.9 % (36.0-45.0); Lymphocytes % 31.6 % (15.3-44.8); MCV 85.7 fL (80-100); MPV 7.8 fL (7.6-11.3); RBC Red Blood Cell Count 4.54 M/uL (3.86-4.86)
[2022-08-14 21:04] LABS: Albumin 3.6 g/dL (3.4-5.0); Bilirubin Total 0.2 mg/dL (0.2-1.0); Potassium 3.9 mmol/L (3.5-5.1); Protein, Total 7.6 g/dL (6.4-8.2)
--- NOTE | 2022-08-14 21:10 | RAD REPORT ---
EXAM DESCRIPTION: CTAbdomen Pelvis W Contrast - 08/14/2022 9:00 pm CLINICAL HISTORY: Abdominal pain. constipation, unable to have bowel movement COMPARISON: Abdomen Pelvis W Contrast dated 04/24/2022; CT ABD PELVIS W CONTRAST dated 07/25/2015 TECHNIQUE: Biphasic CT imaging of the abdomen and pelvis was performed with 100 ml non-ionic IV cont rast. All CT scans are performed using dose optimization technique as appropriate and may include automated exposure control or mA/KV adjustment according to patient size. FINDINGS: The lung bases are clear. The liver, spleen, pancreas, adrenal glands and kidneys are within normal limits. 33 mm cyst inferior right kidney. No bowel obstruction, free air, free fluid or abscess. Moderate stool is present throughout the colon . The appendix is normal. No evidence of significant lymphadenopathy. No suspicious bony findings. IMPRESSION: No acute intra-abdominal or pelvic finding. Moderate constipation.
--- NOTE | 2022-08-14 21:26 | EDPHYS ---
Physician Documentation [facility] Name: Clotilde De La Cruz Age: 76 yrs Sex: Female : 1945 Arrival Date: 08/14/2022 Time: 19:28 Bed 7 Private MD: ED Physician Donny Malave HPI: 08/14 19:50 This 76 yrs old Female presents to ER via Ambulatory with complaints of rn constipation. 19:50 The patient presents to the emergency department with constipation. Onset: The rn symptoms/episode began/occurred today. Possible causes: unknown. The symptoms are aggravated by nothing. The symptoms are alleviated by nothing. Associated signs and symptoms: Pertinent positives: constipation, Pertinent negatives: abdominal pain, fever, GI bleeding. Severity of symptoms: At their worst the symptoms were moderate in the emergency department the symptoms are unchanged. The patient has experienced a previous episode. The patient has not recently seen a physician. Pt reports constipation, last BM yesterday, denies abd pain/vomiting/diarrhea. NO fever. Has happened once before. Drank juice prior to coming in, but no other medication. Passing gas. Historical: - Allergies: 19:46 No Known Allergies; lg3 - Home Meds: 19:46 Lovastatin Oral 20 mg daily [Active]; Metformin Oral 500 mg twice a day [Active]; hctz lg3 12.5 mg every morning [Active]; Omeprazole Oral 20 mg daily [Active]; - PMHx: 19:46 diabetes mellitus; GERD; Hypercholesterolemia; Hypertensive disorder; lg3 - PSHx: 19:46 None; lg3 - Immunization history:: Adult Immunizations up to date, Client reports receiving the 2nd dose of the Covid vaccine. - Social history:: Smoking status: Patient denies any tobacco usage or history of. Patient/guardian denies using alcohol. - Family history:: not pertinent. - Hospitalizations: : No recent hospitalization is reported. ROS: 19:50 Constitutional: Negative for fever, chills, and weight loss, Eyes: Negative for injury, rn pain, redness, and discharge, Cardiovascular: Negative for chest pain, palpitations, and edema, Respiratory: Negative for shortness of breath, cough, wheezing, and pleuritic chest pain, Abdomen/GI: Negative for abd pain. + constipation MS/Extremity: Negative for injury and deformity, Skin: Negative for injury, rash, and discoloration, Neuro: Negative for headache, weakness, numbness, tingling, and seizure. Exam: 19:55 Constitutional: This is a well developed, well nourished patient who is awake, alert, rn and in no acute distress. Ambulatory to room without difficulty. Head/Face: Normocephalic, atraumatic. ENT: MMM Cardiovascular: Regular rate and rhythm. No pulse deficits. Respiratory: No increased work of breathing, no retractions or nasal flaring. Abdomen/GI: soft, non-tender, non-distended Skin: Warm, dry MS/ Extremity: Pulses equal, no cyanosis. Neuro: Awake and alert, GCS 15 Vital Signs: 19:44 BP 167 / 74; Pulse 76; Resp 16 S; Temp 97.6(O); Pulse Ox 98% on R/A; Weight 81.65 kg lg3 (R); Height 5 ft. 2 in. (157.48 cm) (R); Pain 0/10; 21:29 BP 147 / 74; Pulse 75; Resp 18 S; Pulse Ox 98% on R/A; as6 19:44 Body Mass Index 32.92 (81.65 kg, 157.48 cm) lg3 MDM: 19:28 Patient medically screened. rn 21:23 ED course: Pt had bowel movement, feels better, reports slight abd cramping. . rn 21:24 Differential diagnosis: constipation, bowel obstruction, dehydration. Data reviewed: rn vital signs, nurses notes, lab test result(s), radiologic studies, CT scan, and as a result, I will discharge patient. Counseling: I had a detailed discussion with the patient and/or guardian regarding: the historical points, exam findings, and any diagnostic results supporting the discharge/admit diagnosis, lab results, radiology results, the need for outpatient follow up, to return to the emergency department if symptoms worsen or persist or if there are any questions or concerns that arise at home. Response to treatment: the patient's symptoms have mildly improved after treatment, and as a result, I will discharge patient. Special discussion: I discussed with the patient/guardian in detail that at this point there is no indication for admission to the hospital. It is understood, however, that if the symptoms persist or worsen the patient needs to return immediately for re-evaluation. 08/14 19:45 Order name: CBC with Diff; Complete Time: 21: rn 08/14 19:45 Order name: CMP; Complete Time: 21: rn 08/14 19:45 Order name: Lipase; Complete Time: 21: rn 08/14 19:45 Order name: CT Abd/Pelvis - IV Contrast Only rn 08/14 19:50 Order name: Abdomen EDMS 08/14 20:30 Order name: Urine Dipstick-Ancillary; Complete Time: 20:31 EDUT 08/14 19:45 Order name: IV Saline Lock; Complete Time: 20:32 rn 08/14 19:45 Order name: Labs collected and sent; Complete Time: 20:32 rn 08/14 19:45 Order name: Urine Dipstick-Ancillary (obtain specimen); Complete Time: 20:32 rn Administered Medications: 20:32 Drug: NS 0.9% 1000 ml Route: IV; Rate: 1 bolus; Site: right forearm; lg3 21:30 Follow up: Response: No adverse reaction; IV Status: Completed infusion; IV Intake: as6 1000ml 21:29 Not Given (Other Intervention Used): Fleet Enema (sodium phosphate) 133 ml NM once; february as6 repeat once 21:31 CANCELLED (med not avaliable ): Magnesium Citrate Liquid 300 ml PO once lg3 Disposition Summary: 08/14/22 21:25 Discharge Ordered Location: Home rn Problem: new rn Symptoms: have improved rn Condition: Stable rn Diagnosis - Constipation, unspecified rn Followup: rn - With: Private Physician - When: As needed - Reason: Recheck today's complaints, Re-evaluation by your physician Discharge Instructions: - Discharge Summary Sheet rn - Constipation, Adult rn Forms: - Medication Reconciliation Form rn - Thank You Letter rn - Antibiotic hospitalist nocturnist physician - Prescription Opioid Use rn Signatures: Dispatcher [employer] Donny Wisdom MD MD rn Gibson, Lacie, RN RN lg3 Regan Carreno RN as6 Corrections: (The following items were deleted from the chart) 19:51 19:50 Pt reports constipation, last BM yesterday, denies abd pain/vomiting/diarrhea. NO rn fever. Has happened once before. Drank juice prior to coming in, but no other medication.. rn 21:31 21:24 Magnesium Citrate Liquid 300 ml PO once ordered. rn lg3
--- NOTE | 2022-08-14 21:26 | ER ---
Nurse's Notes [facility] Name: Clotilde De La Cruz Age: 76 yrs Sex: Female : 1945 Arrival Date: 08/14/2022 Time: 19:28 Bed 7 Private MD: Diagnosis: Constipation, unspecified Presentation: 08/14 19:44 Chief complaint: Patient states: constipation like symptoms since yesterday. denies lg3 pain, nausea, vomiting. Coronavirus screen: Client denies travel out of the [place] in the last 14 days. At this time, the client does not indicate any symptoms associated with coronavirus-19. Ebola Screen: No symptoms or risks identified at this time. Initial Sepsis Screen: Does the patient meet any 2 criteria? No. Patient's initial sepsis screen is negative. Does the patient have a suspected source of infection? No. Patient's initial sepsis screen is negative. Risk Assessment: Do you want to hurt yourself or someone else? Patient reports no desire to harm self or others. Onset of symptoms was August 13, 2022. 19:44 Method Of Arrival: Ambulatory lg3 19:44 Acuity: JOSE 3 lg3 Triage Assessment: 19:46 General: Appears in no apparent distress. uncomfortable, Behavior is calm, cooperative. lg3 Pain: Denies pain. EENT: No deficits noted. No signs and/or symptoms were reported regarding the EENT system. Neuro: No deficits noted. Kern Agitation-Sedation Scale (RASS): 0 - Alert and Calm Level of Consciousness is awake, alert, obeys commands, Oriented to person, place, time, situation. Cardiovascular: No deficits noted. Denies chest pain, shortness of breath, Capillary refill < 3 seconds Clubbing of nail beds is absent JVD is absent Patient's skin is warm and dry. Respiratory: No deficits noted. Airway is patent Trachea midline Respiratory effort is even, unlabored, Respiratory pattern is regular, symmetrical, Breath sounds are clear bilaterally. GI: Abdomen is round non-distended, Bowel sounds present X 4 quads. Abd is soft and non tender X 4 quads. Reports constipation. : No deficits noted. No signs and/or symptoms were reported regarding the genitourinary system. Derm: No deficits noted. No signs and/or symptoms reported regarding the dermatologic system. Skin is intact, is healthy with good turgor, Skin is dry, Skin is normal, Skin temperature is warm. Musculoskeletal: No deficits noted. No signs and/or symptoms reported regarding the musculoskeletal system. Circulation, motion, and sensation intact. Range of motion: intact in all extremities. Historical: - Allergies: 19:46 No Known Allergies; lg3 - Home Meds: 19:46 Lovastatin Oral 20 mg daily [Active]; Metformin Oral 500 mg twice a day [Active]; hctz lg3 12.5 mg every morning [Active]; Omeprazole Oral 20 mg daily [Active]; - PMHx: 19:46 diabetes mellitus; GERD; Hypercholesterolemia; Hypertensive disorder; lg3 - PSHx: 19:46 None; lg3 - Immunization history:: Adult Immunizations up to date, Client reports receiving the 2nd dose of the Covid vaccine. - Social history:: Smoking status: Patient denies any tobacco usage or history of. Patient/guardian denies using alcohol. - Family history:: not pertinent. - Hospitalizations: : No recent hospitalization is reported. Screenin:52 Abuse screen: Denies threats or abuse. Denies injuries from another. Nutritional lg3 screening: No deficits noted. Tuberculosis screening: No symptoms or risk factors identified. Fall Risk None identified. Assessment: 19:51 General: see triage assessment. lg3 21:06 Reassessment: Patient appears in no apparent distress at this time. No changes from lg3 previously documented assessment. Patient and/or family updated on plan of care and expected duration. Pain level reassessed. Patient is alert, oriented x 3, equal unlabored respirations, skin warm/dry/pink. General:. 21:06 GI: pt reports having a large BM after drinking prune juice. lg3 Vital Signs: 19:44 BP 167 / 74; Pulse 76; Resp 16 S; Temp 97.6(O); Pulse Ox 98% on R/A; Weight 81.65 kg lg3 (R); Height 5 ft. 2 in. (157.48 cm) (R); Pain 0/10; 21:29 BP 147 / 74; Pulse 75; Resp 18 S; Pulse Ox 98% on R/A; as6 19:44 Body Mass Index 32.92 (81.65 kg, 157.48 cm) lg3 ED Course: 19:28 Patient arrived in ED. jj6 19:28 Donny Malave MD is Attending Physician. rn 19:30 Regan Carreno, MARTHA is Primary Nurse. as6 19:46 Triage completed. lg3 19:46 Arm band placed on left wrist. lg3 19:52 Patient has correct armband on for positive identification. Placed in gown. Bed in low lg3 position. Call light in reach. Side rails up X 1. Client placed on continuous cardiac and pulse oximetry monitoring. NIBP monitoring applied. Door closed. Noise minimized. Warm blanket given. Family accompanied patient. 20:32 Inserted saline lock: 20 gauge in right forearm, using aseptic technique. Blood lg3 collected. 20:32 CBC with Diff Sent. lg3 20:32 CMP Sent. lg3 20:32 Lipase Sent. lg3 21:02 Abdomen In Process Unspecified. EDMS 21:29 No provider procedures requiring assistance completed. IV discontinued, intact, as6 bleeding controlled, No redness/swelling at site. Pressure dressing applied. Administered Medications: 20:32 Drug: NS 0.9% 1000 ml Route: IV; Rate: 1 bolus; Site: right forearm; lg3 21:30 Follow up: Response: No adverse reaction; IV Status: Completed infusion; IV Intake: as6 1000ml 21:29 Not Given (Other Intervention Used): Fleet Enema (sodium phosphate) 133 ml RI once; february as6 repeat once 21:31 CANCELLED (med not avaliable ): Magnesium Citrate Liquid 300 ml PO once lg3 Medication: 21:29 VIS not applicable for this client. as6 Intake: 21:30 IV: 1000ml; Total: 1000ml. as6 Outcome: 21:25 Discharge ordered by . rn 21:30 Discharged to home ambulatory. as6 21:30 Condition: stable 21:30 Discharge instructions given to patient, Instructed on discharge instructions, follow up and referral plans. Demonstrated understanding of instructions, follow-up care. 21:46 Patient left the ED. lg3 Signatures: Dispatcher [employer] EDMS Donny Malave MD MD rn Gibson, Lacie, RN RN lg3 Magda Lacy jj6 Regan Carreno, MARTHA RN as6
[2022-08-14 22:16] VITALS: TEMP 97.6; O2SAT 98
[2022-08-14 22:24] VITALS: BP 147/74
== END 2022-08-14 21:46 | disposition home or self-care (01) ==
LOC: ER 19:25
DX: K59.00 Constipation, unspecified (principal); E11.9 Type 2 diabetes mellitus without complications; I10 Essential (primary) hypertension
CPT/HCPCS: 85025; 36415; 82565; 81003; 83690; 80053; 74177; 96360; 99284; Q9967; J7030

== ENCOUNTER 2023-06-14 11:31 | Emergency (ER) | payer OTHER ==
--- OUTSIDE RECORDS SUMMARY | 2023-06-14 11:35 | XMS REPORT | Continuity of Care Document ---
:1945 Author Organization [facility] t Address [address] [place] [address] Care Team Providers Name Role Phone JEANCARLOS GARCÍA Primary Care Physician Unavailable JESÚS JOHNSTON Attending Clinician Unavailable Jesús Johnston MD Attending Clinician Payers Payer Name Policy Type Policy Number Effective Date Expiration Date Sydnie kruse [employer] [id number] 2021 00:00:00 SPRING Problems This patient has no known problems. Allergies, Adverse Reactions, Alerts Allergy Allergy Status Severity Reaction(s) Onset Inactive Treating Comm ents Source Name Type Date Date Clinician NO KNOWN Drug Active [facility] ALLERGIE Class ity of [facility] Social History Social Habit Start Date Stop Date Quantity Comments Source Exposure to 2022-03-26 2022-04-05 Not sure [facility] SARS-CoV-2 (event) 00:00:00 08:54:00 Medica l Branch Sex Ass[birth year] [facility] 00:00:00 00:00:00 Medical Branch Smoking Status Start Date Stop Date Source Unknown if ever smoked [facility] Medications Ordered Filled Start Stop Current Ordering Indication Dosage Frequency Signature Comments Components Source Medication Medication Date Date Medication? Clinician (SIG) Name Name VALSARTAN-H Yes Take by Uni vers YDROCHLOROT 6-18 mouth. ity of HIAZIDE 09:34: [place] ORAL [address] [place] [address] LOVASTATIN Yes Take by Univ ers ORAL 6-18 mouth. ity of 09:34: [address] metformin Yes Take by Unive rs HCl 6-18 mouth. ity of (METFORMIN 09:34: [place] ORAL) [address] [facility] fluticasone Yes [id number] 2{spray Use 2 Univers propionate 6-18 } Sprays in ity of 50 00:00: each [place] mcg/actuati 00 nostril Medic al on nasal daily. Branch spray Cetirizine 2021- No [id number] 10mg Take 1 Univers 10 mg 04-05 capsule by ity of capsule 00:00: 04:59 mouth [place] 00 :00 daily for Medical 30 days. Branch Immunizations Ordered Filled Immunization Date Status Comments Sour e Immunization Name Name SARS-COV-2 COVID-19 2021-08-21 Completed Unive rsity of PFIZER VACCINE 00:00:00 [facility] SARS-COV-2 COVID-19 2021-03-04 Completed Unive rsity of PFIZER VACCINE 00:00:00 [facility] SARS-COV-2 COVID-19 2021-02-12 Completed Unive rsity of PFIZER VACCINE 00:00:00 [facility] Vital Signs Vital Name Observation Time Observation Value Comments Source Systolic blood 2022-04-05 13:55:00 159 mm[Hg] Univer sity of pressure [facility] Diastolic blood 2022-04-05 13:55:00 63 mm[Hg] Unive rsity of pressure [facility] Heart rate 2022-04-05 13:55:00 81 /min [facility] Body temperature 2022-04-05 13:55:00 36.67 [facility] Respiratory rate 2022-04-05 13:55:00 22 /min [facility] Body weight 2022-04-05 13:55:00 72.53 kg [facility] Oxygen saturation in 2022-04-05 13:55:00 97 /min [facility] Arterial blood by [facility] Pulse oximetry Zirconia Procedures Procedure Date / Time Performed Performing Clinician Sour e NOTICE OF PRIVACY 2022-04-05 13:51:39 Doctor Unassigned, No [facility] PRACTICES Name Medical Branch Encounters Start End Encounter Admission Attending Care Care Encounter Source Date/Time Date/Time Type Type Clinicians Facility Department ID 2022-04-05 2022-04-05 Emergency X PRE[facility], [facility] ERT [id number] Univers 08:58:00 10:00:[address] [facility] 2022-04-05 2022-04-05 [facility] [id number] [facility] 08:58:00 10:00:00 Jesús RIOS [id number] gareth [facility] [id number] [facility] [id number] [facility] 084 Branch Results This patient has no known results.
[2023-06-14] MEDS ORDERED: ONDANSETRON 4 MG/2 ML VIAL ONE (12:24)
[2023-06-14] MEDS ORDERED: FENTANYL CITR 100 MCG/2 ML ONE (12:24)
[2023-06-14 12:36] LABS: Hematocrit 38.6 % (36.0-45.0); Lymphocytes % 31.5 % (15.3-44.8); MCV 87.6 fL (80-100); Platelets 243 thou/uL (152-406); RBC Red Blood Cell Count 4.41 M/uL (3.86-4.86)
[2023-06-14 12:41] LABS: Specific Gravity 1.016 (1.005-1.030); Urine Bacteria None Seen /HPF (<20); Urine Bilirubin NEGATIVE (Negative); Urine Blood Negative (Negative); Urine Clarity Clear (Clear); Urine Color Light-Yellow (Yellow); Urine Glucose NEGATIVE (Negative); Urine Mucus Slight /HPF (None Seen); Urine Protein TRACE (Negative); Urine RBC <5 /HPF (None Seen); Urine Urobilinogen Normal (Normal)
[2023-06-14 12:53] LABS: ALT/SGPT 93 U/L (13-56); AST/SGOT 41 U/L (15-37); Albumin 3.5 g/dL (3.4-5.0); Alkaline Phosphatase 82 U/L (45-117); BUN Blood Urea Nitrogen 15 mg/dL (7-18); Bicarbonate 29 mEq/L (21-32); Bilirubin Direct < 0.1 mg/dL (0-0.2); Bilirubin Indirect, Calculated ND mg/dL (0.2-0.8); Bilirubin Total 0.3 mg/dL (0.2-1.0); Glomerular Filtration Rate 56 ml/min (=/>90); Glucose Level 130 mg/dL (74-106); Lipase 42 U/L (13-75); Potassium 3.7 mEq/L (3.5-5.1); Protein, Total 7.5 g/dL (6.4-8.2); Sodium Level 138 mEq/L (136-145)
--- NOTE | 2023-06-14 14:09 | RAD REPORT ---
EXAM DESCRIPTION: CT - Head C Spine Cap W Con - 06/14/2023 1:24 pm CLINICAL HISTORY: DIZZINESS COMPARISON: Abdomen Pelvis W Contrast dated 08/14/2022; Abdomen Pelvis W Contrast dated 04/24/2022 TECHNIQUE: Head and cervical spine CT images were obtained without IV contrast. Chest, abdomen, and pelvis CT images were obtained following intravenous administration of 90 mL Isovue-300. Multiplanar reformats were generated and reviewed. All CT scans are performed using dose optimization technique as appropriate and may include automated exposure control or mA/KV adjustment according to patient size. FINDINGS: CT HEAD: No intracranial hemorrhage, mass effect, or edema. No evidence of acute territorial infarct. Left cor tical focus of calcification along the frontal gyri, appears chronic, and could relate to sequelae of remote trauma or infection. No midline shift or abnormal fluid collection. The ventricles are normal in caliber and configuration for age. Basal cisterns are patent. Mastoid aircells and paranasal sinu ses are clear. No acute skull fracture. CT CERVICAL SPINE: No acute cervical spine fracture or subluxation. Vertebral body heights are well maintained. Facet amilcar ints are normal in alignment. No hyperattenuating canal hematoma. Prevertebral and paraspinous soft t issues are unremarkable. CT CHEST: No pneumothorax, pulmonary contusion or pleural fluid collection. No mediastinal hematoma and the aor ta and pulmonary arteries are unremarkable. No chest will mass or abnormal axillary finding. No displ aced rib fracture or other significant bony finding. CT ABDOMEN/ PELVIS: No evidence of traumatic injury to solid abdominal viscera. Gallbladder and biliary tree are unremark able. No bowel injury or significant finding. Right lower pole 3.4 cm cyst. Prominence of the common bile duct. No free air, free fluid or abnormal fat stranding. No urinary bladder abnormality. No significant bony finding. IMPRESSION: No no evidence of an acute traumatic process. Chronic findings as above, including prominence of the common bile duct, nonspecific. Please correlat e clinically and with bilirubin levels.
--- NOTE | 2023-06-14 14:11 | RAD REPORT ---
EXAM DESCRIPTION: RADChest Single View06/14/2023 1:36 pm CLINICAL HISTORY: CHEST PAIN COMPARISON: Chest Pa And Lat (2 Views) dated 02/09/2023; Chest Single View dated 11/02/2022; Chest Sin gle View dated 04/24/2022; Chest Pa And Lat (2 Views) dated 11/10/2016 TECHNIQUE: Portable AP view of the chest. FINDINGS: The lungs are clear. No pneumothorax or effusion. The cardiomediastinal contours are unre markable. IMPRESSION: No acute cardiopulmonary process.
[2023-06-14] MEDS ORDERED: CEFTRIAXONE 1000 MG/VIAL ONE (14:33)
[2023-06-14] MEDS ORDERED: NA CHLORIDE 0.9% 50 ML ONE (14:34)
--- NOTE | 2023-06-14 14:56 | EDPHYS ---
Physician Documentation [facility] Name: Clotilde De La Cruz Age: 77 yrs Sex: Female : 1945 Arrival Date: 06/14/2023 Time: 11:31 Bed 7 Private MD: ED Physician Daniel Hill HPI: 06/14 12:20 This 77 yrs old Female presents to ER via Ambulatory with complaints of Fall donna Injury. 12:20 Details of fall: The patient fell from an upright position. Onset: The symptoms/episode donna began/occurred yesterday. Associated injuries: The patient sustained upper back injury, injury to the low back, injury to the abdomen, specifically the posterior aspect of left lateral abdomen. Severity of symptoms: At their worst the symptoms were moderate, in the emergency department the symptoms are unchanged. The patient has not experienced similar symptoms in the past. Historical: - Allergies: 11:50 No Known Allergies; jl7 - Home Meds: 11:50 metformin 500 mg Oral Tb24 2 times per day [Active]; telmisartan 40 mg Oral tab 1 tab jl7 once daily [Active]; hydrochlorothiazide 12.5 mg Oral tab 1 tab once daily [Active]; omeprazole 20 mg Oral cpDR 1 cap once daily [Active]; - PMHx: 11:50 diabetes mellitus; GERD; Hypercholesterolemia; Hypertensive disorder; jl7 - Immunization history:: Adult Immunizations unknown. - Social history:: Smoking status: Patient denies any tobacco usage or history of. ROS: 12:23 Constitutional: Negative for fever, chills, and weight loss, Eyes: Negative for injury, donna pain, redness, and discharge, ENT: Negative for injury, pain, and discharge, Neck: Negative for injury, pain, and swelling, Cardiovascular: Negative for chest pain, palpitations, and edema, Respiratory: Negative for shortness of breath, cough, wheezing, and pleuritic chest pain, : Negative for injury, bleeding, discharge, and swelling, MS/Extremity: Negative for injury and deformity, Skin: Negative for injury, rash, and discoloration, Psych: Negative for depression, anxiety, suicide ideation, homicidal ideation, and hallucinations, Allergy/Immunology: Negative for hives, rash, and allergies, Endocrine: Negative for neck swelling, polydipsia, polyuria, polyphagia, and marked weight changes, Hematologic/Lymphatic: Negative for swollen nodes, abnormal bleeding, and unusual bruising. 12:23 Abdomen/GI: Positive for abdominal pain, of the posterior aspect of left lateral abdomen, anterior aspect of left lateral abdomen and left lower quadrant. Exam: 12:23 Constitutional: This is a well developed, well nourished patient who is awake, alert, donna and in no acute distress. Eyes: Pupils equal round and reactive to light, extra-ocular motions intact. Lids and lashes normal. Conjunctiva and sclera are non-icteric and not injected. Cornea within normal limits. Periorbital areas with no swelling, redness, or edema. ENT: Nares patent. No nasal discharge, no septal abnormalities noted. Tympanic membranes are normal and external auditory canals are clear. Oropharynx with no redness, swelling, or masses, exudates, or evidence of obstruction, uvula midline. Mucous membranes moist. Neck: Trachea midline, no thyromegaly or masses palpated, and no cervical lymphadenopathy. Supple, full range of motion without nuchal rigidity, or vertebral point tenderness. No Meningismus. Chest/axilla: Normal chest wall appearance and motion. Nontender with no deformity. No lesions are appreciated. Cardiovascular: Regular rate and rhythm with a normal S1 and S2. No gallops, murmurs, or rubs. Normal PMI, no JVD. No pulse deficits. Respiratory: Lungs have equal breath sounds bilaterally, clear to auscultation and percussion. No rales, rhonchi or wheezes noted. No increased work of breathing, no retractions or nasal flaring. Abdomen/GI: Soft, non-tender, with normal bowel sounds. No distension or tympany. No guarding or rebound. No evidence of tenderness throughout. Back: No spinal tenderness. No costovertebral tenderness. Full range of motion. Skin: Warm, dry with normal turgor. Normal color with no rashes, no lesions, and no evidence of cellulitis. MS/ Extremity: Pulses equal, no cyanosis. Neurovascular intact. Full, normal range of motion. Neuro: Awake and alert, GCS 15, oriented to person, place, time, and situation. Cranial nerves II-XII grossly intact. Motor strength 5/5 in all extremities. Sensory grossly intact. Cerebellar exam normal. Normal gait. Psych: Awake, alert, with orientation to person, place and time. Behavior, mood, and affect are within normal limits. 12:23 Head/face: Noted is contusion, that is superficial, of the left side of the back of head, left occipital area, left base of the skull, right side of the back of head, right occipital area and right base of the skull. 12:23 Back: pain, that is mild, that is moderate, ROM is painful, normal spinal alignment noted, CVA tenderness, that is mild, is noted on the left, muscle spasm, is appreciated in the left low back, left mid back, right mid back and right low back. Vital Signs: 11:49 BP 133 / 61; Pulse 80; Resp 17; Temp 97.2; Pulse Ox 93% ; Weight 72.57 kg; Height 5 ft. jl7 5 in. ; Pain 9/10; 13:12 BP 113 / 56; Pulse 77; Resp 18; Pulse Ox 98% on R/A; ph 14:33 BP 123 / 65; Pulse 66; Resp 16; Pulse Ox 100% on R/A; hb 16:00 BP 118 / 78; Pulse 68; Resp 18; Temp 98; Pulse Ox 99% on R/A; ph 11:49 Body Mass Index 26.63 (72.57 kg, 165.1 cm) jl7 11:49 Pain Scale: Adult jl7 Wily Coma Score: 12:26 Eye Response: spontaneous(4). Motor Response: obeys commands(6). Verbal Response: donna oriented(5). Total: 15. MDM: 11:56 Patient medically screened. donna 12:26 Differential diagnosis: Contusion of Hematoma on Concussion without LOC. Differential donna diagnosis: abrasion, closed head injury, contusion, fracture, multiple trauma, sprain, strain. Data reviewed: vital signs, nurses notes, lab test result(s), radiologic studies, CT scan. Consideration of Admission/Observation Escalation of care including admission/observation considered. I considered the following discharge prescriptions or medication management in the emergency department Medications were administered in the Emergency Department. See MAR. Independent interpretation of the following test(s) in the Emergency Department X-Ray: My interpretation is cxr neg. Test considered but Not performed: Ultrasound no abd usg. Historians other than the Patient: Spouse/Significant Other: , informed. Care significantly affected by the following chronic conditions: Diabetes, Hypertension, gerd, high cholesterol. Counseling: I had a detailed discussion with the patient and/or guardian regarding the historical points, exam findings, and any diagnostic results supporting the discharge/admit diagnosis, lab results, radiology results, the need for outpatient follow up, for definitive care, a family practitioner, a general surgeon. 06/14 12:07 Order name: Basic Metabolic Panel; Complete Time: 13:11 [facility] 06/14 12:07 Order name: CBC with Diff; Complete Time: 13:11 [facility] 06/14 12:07 Order name: Type And Screen; Complete Time: 14:00 [facility] 06/14 12:07 Order name: Urinalysis w/ reflexes; Complete Time: 13:11 [facility] 06/14 12:07 Order name: Lipase; Complete Time: 13:11 [facility] 06/14 12:07 Order name: LFT's; Complete Time: 13:11 [facility] 06/14 12:07 Order name: CT Traumagram (Head C Spine CAP W Con); Complete Time: 14:23 [facility] 06/14 12:07 Order name: XRAY Chest (1 view); Complete Time: 14:23 [facility] 06/14 12:07 Order name: INCENTIVE SPIROMETRY [facility] 06/14 12:07 Order name: Labs collected and sent; Complete Time: 12:26 [facility] Administered Medications: 12:25 Drug: fentaNYL (PF) IVP 25 mcg Route: IVP; Site: right antecubital; hb 14:45 Follow up: Response: No adverse reaction ph 12:25 Drug: Ondansetron IVP 4 mg Route: IVP; Site: right antecubital; hb 14:45 Follow up: Response: No adverse reaction ph 14:45 Drug: Rocephin IV 1 grams Route: IV; Rate: per protocol; Site: right antecubital; ph Disposition Summary: 06/14/23 14:56 Discharge Ordered Location: Home donna Problem: new donna Symptoms: have improved donna Condition: Stable donna Diagnosis - Fall on same level, unspecified donna - Unspecified injury of head, initial encounter donna - Low back pain donna - Unspecified symptoms and signs involving the musculoskeletal system donna - UTI/ Urinary tract infection, site not specified donna - Abnormal findings on diagnostic imaging of liver and biliary tract - upper limits donna of CBD Followup: donna - With: Private Physician - When: 2 - 3 days - Reason: Recheck today's complaints, Continuance of care, Re-evaluation by your physician Followup: [facility] - With: Fermín Haynes MD - When: 2 - 3 days - Reason: Recheck today's complaints, Continuance of care, Re-evaluation by your physician Discharge Instructions: - Discharge Summary Sheet [facility] - Acute Back Pain, Adult donna - Head Injury, Adult donna - Musculoskeletal Pain [facility] - Urinary Tract Infection, Adult [facility] - How to Use an Incentive Spirometer [facility] - Urinary Tract Infection, Adult, [id number] [facility] - Head Injury, Adult, [id number] [facility] Forms: - Medication Reconciliation Form [facility] - Thank You Letter [facility] - Antibiotic Education [facility] - Prescription Opioid Use [facility] - Patient Portal Instructions [facility] - Leadership Thank You Letter [facility] Prescriptions: - diclofenac sodium 25 mg Oral tablet, delayed release (enteric coated) - take 1 tablet by ORAL route every 8 hours as needed for pain; 21 tablet; [facility] Refills: 0, Product Selection Permitted - Macrobid 100 mg Oral Capsule - take 1 capsule by ORAL route every 12 hours for 7 days; 14 capsule; Refills: 0, [facility] Product Selection Permitted Signatures: Dispatcher [employer] Daniel Downey MD MD cha Hall, Patricia RN RN Jennifer Holcomb, RN RN Nabil Smith RN RN jl7
--- NOTE | 2023-06-14 14:56 | ER ---
Nurse's Notes [facility] Name: Clotilde De La Cruz Age: 77 yrs Sex: Female : 1945 Arrival Date: 06/14/2023 Time: 11:31 Bed 7 Private MD: Diagnosis: Fall on same level, unspecified;Unspecified injury of head, initial encounter;Low back pain;Unspecified symptoms and signs involving the musculoskeletal system;UTI/ Urinary tract infection, site not specified;Abnormal findings on diagnostic imaging of liver and biliary tract-upper limits of CBD Presentation: 06/14 11:49 Chief complaint: Patient states: Mechanical fall 8 days ago, reports continued ROSS, jl7 right side pain, low back pain. Coronavirus screen: At this time, the client does not indicate any symptoms associated with coronavirus-19. Ebola Screen: No symptoms or risks identified at this time. Initial Sepsis Screen: Does the patient meet any 2 criteria? No. Patient's initial sepsis screen is negative. Does the patient have a suspected source of infection? No. Patient's initial sepsis screen is negative. Risk Assessment: Do you want to hurt yourself or someone else? Patient reports no desire to harm self or others. Onset of symptoms was June 06, 2023. 11:49 Method Of Arrival: Ambulatory jl7 11:49 Acuity: JOSE 3 jl7 Triage Assessment: 11:50 General: Appears in no apparent distress. uncomfortable, Behavior is calm, cooperative, jl7 appropriate for age. Pain: Complains of pain in ROSS, low back Pain currently is 9 out of 10 on a pain scale. Historical: - Allergies: 11:50 No Known Allergies; jl7 - Home Meds: 11:50 metformin 500 mg Oral Tb24 2 times per day [Active]; telmisartan 40 mg Oral tab 1 tab jl7 once daily [Active]; hydrochlorothiazide 12.5 mg Oral tab 1 tab once daily [Active]; omeprazole 20 mg Oral cpDR 1 cap once daily [Active]; - PMHx: 11:50 diabetes mellitus; GERD; Hypercholesterolemia; Hypertensive disorder; jl7 - Immunization history:: Adult Immunizations unknown. - Social history:: Smoking status: Patient denies any tobacco usage or history of. Screenin:33 [facility] ED Fall Risk Assessment (Adult) Score/Fall Risk Level 0 - 2 = Low Risk hb Oriented to surroundings, Maintained a safe environment. Abuse screen: Denies threats or abuse. Denies injuries from another. Nutritional screening: No deficits noted. Tuberculosis screening: No symptoms or risk factors identified. Assessment: 13:45 General: Appears in no apparent distress. Behavior is calm, cooperative. Pain: Pain hb currently is 9 out of 10 on a pain scale. Neuro: Level of Consciousness is awake, alert, obeys commands, Oriented to person, place, time, situation. Cardiovascular: Patient's skin is warm and dry. Respiratory: Respiratory effort is even, unlabored, Respiratory pattern is regular, symmetrical. GI: No signs and/or symptoms were reported involving the gastrointestinal system. : No signs and/or symptoms were reported regarding the genitourinary system. EENT: No signs and/or symptoms were reported regarding the EENT system. Derm: Skin is pink, warm \T\ dry. Musculoskeletal: Reports pain in head, neck, entire left side of body, and back. 14:32 Reassessment: Patient appears in no apparent distress at this time. Patient and/or hb family updated on plan of care and expected duration. Pain level reassessed. Patient is alert, oriented x 3, equal unlabored respirations, skin warm/dry/pink. Vital Signs: 11:49 BP 133 / 61; Pulse 80; Resp 17; Temp 97.2; Pulse Ox 93% ; Weight 72.57 kg; Height 5 ft. jl7 5 in. ; Pain 9/10; 13:12 BP 113 / 56; Pulse 77; Resp 18; Pulse Ox 98% on R/A; ph 14:33 BP 123 / 65; Pulse 66; Resp 16; Pulse Ox 100% on R/A; hb 16:00 BP 118 / 78; Pulse 68; Resp 18; Temp 98; Pulse Ox 99% on R/A; ph 11:49 Body Mass Index 26.63 (72.57 kg, 165.1 cm) jl7 11:49 Pain Scale: Adult jl7 Wily Coma Score: 12:26 Eye Response: spontaneous(4). Motor Response: obeys commands(6). Verbal Response: donna oriented(5). Total: 15. ED Course: 11:32 Patient arrived in ED. rg4 11:50 Triage completed. jl7 11:50 Patient has correct armband on for positive identification. Placed in gown. Bed in low mm9 position. Call light in reach. Side rails up X 1. Adult w/ patient. Warm blanket given. Pulse ox on. NIBP on. 11:50 Arm band placed on right wrist. jl7 11:56 Daniel Hill MD is Attending Physician. [facility] 12:26 Initial lab(s) drawn, by me, sent to lab. Urine collected: clean catch specimen, mm9 cloudy. Inserted saline lock: 20 gauge in right antecubital area, using aseptic technique. Blood collected. 13:25 CT Traumagram (Head C Spine CAP W Con) In Process Unspecified. EDMS 13:38 XRAY Chest (1 view) In Process Unspecified. EDMS 14:19 Ira Grove, RN is Primary Nurse. ph 14:54 Fermín Haynes MD is Referral Physician. [facility] 17:00 No provider procedures requiring assistance completed. IV discontinued, intact, ph bleeding controlled, No redness/swelling at site. Pressure dressing applied. Administered Medications: 12:25 Drug: fentaNYL (PF) IVP 25 mcg Route: IVP; Site: right antecubital; hb 14:45 Follow up: Response: No adverse reaction ph 12:25 Drug: Ondansetron IVP 4 mg Route: IVP; Site: right antecubital; hb 14:45 Follow up: Response: No adverse reaction ph 14:45 Drug: Rocephin IV 1 grams Route: IV; Rate: per protocol; Site: right antecubital; ph Medication: 14:33 VIS not applicable for this client. hb Outcome: 14:56 Discharge ordered by . donna 17:32 Patient left the ED. ph 17:32 Discharged to home ambulatory. ph 17:32 Condition: good 17:32 Discharge instructions given to patient, Instructed on discharge instructions, follow up and referral plans. medication usage, Demonstrated understanding of instructions, follow-up care, medications, Prescriptions given X 2. Signatures: Dispatcher [employer] EDMS Daniel Hill MD MD cha Hall, Patricia, MARTHA THOMAS Jennifer Davalos RN RN hb Garcia, Rubi rg4 Nabil Smith RN RN jl7 Clotilde Valle mm9
[2023-06-14 17:56] VITALS: TEMP 97.2
[2023-06-14 17:59] VITALS: BP 123/65; O2SAT 100
== END 2023-06-14 17:32 | disposition home or self-care (01) ==
LOC: ER 11:31
DX: S00.93XA Contusion of unspecified part of head, initial encounter (principal); M54.50 Low back pain, unspecified; N39.0 Urinary tract infection, site not specified; R29.91 Unspecified symptoms and signs involving the musculoskeletal system; R93.2 Abnormal findings on diagnostic imaging of liver and biliary tract; W18.30XA Fall on same level, unspecified, initial encounter; E11.9 Type 2 diabetes mellitus without complications; I10 Essential (primary) hypertension
CPT/HCPCS: 85025; 81001; 80048; 36415; 86900; 86850; 86901; 80076; 83690; 70450; 72125; 71260; 74177; 71045; Q9967; J3010; J2405; J0696; 96374; 96375; 99284